=== PATIENT | female | born 1990 | race Two or more races ===

== ENCOUNTER 2025-04-29 15:29 | Emergency (ER) | payer BC, OTHER ==
[~2025-04-29] VITALS: Ht 165.1 cm; Wt 89.5 kg
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
[2025-04-29] MEDS ORDERED: BACDST PO (17:12)
[2025-04-29] MEDS ORDERED: IBUP1TAB5 PO (17:12)
[2025-04-29 17:41] VITALS: BP 121/62; PULSE 68; RESP 20; TEMP 97.9; O2SAT 99
== END 2025-04-29 17:47 | disposition home or self-care (01) ==
LOC: ER 15:29
DX: S01.111A Laceration without foreign body of right eyelid and periocular area, initial encounter (principal); S50.312A Abrasion of left elbow, initial encounter; F32.A Depression, unspecified; Z98.51 Tubal ligation status; Z98.84 Bariatric surgery status; V86.59XA Driver of other special all-terrain or other off-road motor vehicle injured in nontraffic accident, initial encounter; Y93.89 Activity, other specified; Y92.89 Other specified places as the place of occurrence of the external cause; Y99.8 Other external cause status
CPT/HCPCS: 12011; 99283; J2003